=== PATIENT | female | born 1985 | race Caucasian/White ===

== ENCOUNTER 2019-12-26 19:30 | Emergency (ER) | payer OTHER ==
--- NOTE | 2019-12-26 20:03 | EDPHYS ---
Physician Documentation [facility] Name: Angella Pereira Age: 34 yrs Sex: Female : 1985 Arrival Date: 12/26/2019 Time: 19:34 Bed 23 Private MD: ED Physician Osmin Munguia HPI: 12/26 20:00 This 34 yrs old Female presents to ER via Ambulatory with complaints of Check pm1 tubing. 20:00 Patient presenting to the ER with complaints of broken tubing attachment to her pm1 drainage bulb. Onset: The symptoms/episode began/occurred today. Patient has plastic surgery in [place]. Had a tummy tuck with a drain. The plastic tubing that attaches to the drainage bulb broke and she would like a replacement. Patient without any other complaints. No fever or abdominal pain. 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 - Coronavirus screen:: The patient has NOT traveled to [place], [place], or [place] in the past 14 days. The patient has NOT had contact with known/suspected case of Coronavirus? Proceed with normal triage procedures. - Social history:: Smoking status: Patient reports the use of cigarette tobacco products, denies chronic smoking, but will smoke occasionally. - Ebola Screening: : Patient negative for fever greater than or equal to 101.5 degrees Fahrenheit, and additional compatible Ebola Virus Disease symptoms. ROS: 20:00 Constitutional: Negative for fever, chills, and weight loss, Abdomen/GI: Negative for pm1 abdominal pain, nausea, vomiting, diarrhea, and constipation. 20:00 All other systems are negative. Exam: 20:00 Constitutional: This is a well developed, well nourished patient who is awake, alert, pm1 and in no acute distress. Head/Face: Normocephalic, atraumatic. Chest/axilla: Normal chest wall appearance and motion. Nontender with no deformity. No lesions are appreciated. Cardiovascular: Regular rate and rhythm with a normal S1 and S2. No gallops, murmurs, or rubs. No pulse deficits. Respiratory: Lungs have equal breath sounds bilaterally, clear to auscultation and percussion. No rales, rhonchi or wheezes noted. No increased work of breathing, no retractions or nasal flaring. Abdomen/GI: Soft, non-tender, with normal bowel sounds. No distension or tympany. No guarding or rebound. No evidence of tenderness throughout. Skin: Warm, dry with normal turgor. Normal color with no rashes, no lesions, and no evidence of cellulitis. MS/ Extremity: Pulses equal, no cyanosis. Neurovascular intact. Full, normal range of motion. 20:00 Neuro: Orientation: is normal, Mentation: is normal, Gait: is steady, at a normal pace, without difficulty. Vital Signs: 19:48 BP 108 / 68; Pulse 78; Resp 16 S; Temp 98.9(TE); Pulse Ox 100% on R/A; Weight 77.11 kg jd3 (R); Height 5 ft. 6 in. (167.64 cm) (R); Pain 0/10; 19:48 Body Mass Index 27.44 (77.11 kg, 167.64 cm) jd3 MDM: 20:00 Patient medically screened. pm1 20:00 Data reviewed: vital signs. Data interpreted: Pulse oximetry: on room air is 100 %. pm1 Interpretation: normal. Counseling: I had a detailed discussion with the patient and/or guardian regarding: the historical points, exam findings, and any diagnostic results supporting the discharge/admit diagnosis, the need for outpatient follow up, a plastic surgeon, to return to the emergency department if symptoms worsen or persist or if there are any questions or concerns that arise at home. 12/26 20:14 Order name: Leg Bag; Complete Time: 20:14 mg2 Administered Medications: No medications were administered Disposition: 12/26/19 20:02 Discharged to Home. Impression: Encounter for attention to dressings, sutures and drains. - Condition is Stable. - Medication Reconciliation Form, Thank You Letter, Antibiotic Education, Prescription Opioid Use form. - Follow up: Emergency Department; When: As needed; Reason: Worsening of condition. Follow up: Private Physician; When: 2 - 3 days; Reason: Recheck today's complaints, Continuance of care, Re-evaluation by your physician. - Problem is new. - Symptoms have improved. Addendum: 12/28/2019 07:46 Co-signature as Attending Physician, Osmin Munguia MD I agree with the assessment and t w4 plan of care. Signatures: Emigdio Rooney, LANDEN WELDER EXPLOSION pm1 Rick Szymanski, RN RN jd3 Osmin Munguia MD MD tw4 Vladimir Fry, RN RN mg2 Corrections: (The following items were deleted from the chart) 12/26 20:15 20:02 12/26/2019 20:02 Discharged to Home. Impression: Encounter for attention to mg2 dressings, sutures and drains. Condition is Stable. Forms are Medication Reconciliation Form, Thank You Letter, Antibiotic Education, Prescription Opioid Use. Follow up: Emergency Department; When: As needed; Reason: Worsening of condition. Follow up: Private Physician; When: 2 - 3 days; Reason: Recheck today's complaints, Continuance of care, Re-evaluation by your physician. Problem is new. Symptoms have improved. pm1
--- NOTE | 2019-12-26 20:03 | ER ---
Nurse's Notes [facility] Name: Angella Pereira Age: 34 yrs Sex: Female : 1985 Arrival Date: 12/26/2019 Time: 19:34 Bed 23 Private MD: Diagnosis: Encounter for attention to dressings, sutures and drains Presentation: 12/26 19:46 Presenting complaint: Patient states: "I had plastic surgery and I had the drain jd3 brake.". Transition of care: patient was not received from another setting of care. Onset of symptoms was December 26, 2019. Risk Assessment: Do you want to hurt yourself or someone else? Patient reports no desire to harm self or others. Initial Sepsis Screen: Does the patient meet any 2 criteria? No. Patient's initial sepsis screen is negative. Does the patient have a suspected source of infection? No. Patient's initial sepsis screen is negative. Care prior to arrival: None. 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 - Coronavirus screen:: The patient has NOT traveled to [place], [place], or [place] in the past 14 days. The patient has NOT had contact with known/suspected case of Coronavirus? Proceed with normal triage procedures. - Social history:: Smoking status: Patient reports the use of cigarette tobacco products, denies chronic smoking, but will smoke occasionally. - Ebola Screening: : Patient negative for fever greater than or equal to 101.5 degrees Fahrenheit, and additional compatible Ebola Virus Disease symptoms. Screenin:11 Abuse screen: Denies threats or abuse. Denies injuries from another. Nutritional mg2 screening: No deficits noted. Tuberculosis screening: No symptoms or risk factors identified. Fall Risk None identified. Assessment: 20:11 General: Appears in no apparent distress. comfortable, Behavior is calm, cooperative. mg2 Pain: Denies pain. Neuro: Level of Consciousness is awake, alert, obeys commands, Oriented to person, place, time, situation. Cardiovascular: Capillary refill < 3 seconds Patient's skin is warm and dry. Vital Signs: 19:48 BP 108 / 68; Pulse 78; Resp 16 S; Temp 98.9(TE); Pulse Ox 100% on R/A; Weight 77.11 kg jd3 (R); Height 5 ft. 6 in. (167.64 cm) (R); Pain 0/10; 19:48 Body Mass Index 27.44 (77.11 kg, 167.64 cm) jd3 ED Course: 19:34 Patient arrived in ED. es 19:47 Triage completed. jd3 19:50 Arm band placed on. jd3 19:52 Vladimir Fry, LEOPOLDO is Primary Nurse. mg2 19:53 Emigdio Rooney NP is PHCP. pm1 19:53 Osmin Munguia MD is Attending Physician. pm1 20:12 Patient has correct armband on for positive identification. Door closed. mg2 20:12 No provider procedures requiring assistance completed. Patient did not have IV access mg2 during this emergency room visit. 20:12 leg bag/drain attached to the post-surgical tubing/ tummy tuck. mg2 Administered Medications: No medications were administered Outcome: 20:02 Discharge ordered by . pm1 20:13 Discharged to home ambulatory, with family. mg2 20:13 Condition: stable 20:13 Discharge instructions given to patient, Instructed on discharge instructions, follow up and referral plans. Demonstrated understanding of instructions, follow-up care. 20:15 Patient left the ED. mg2 Signatures: Katelyn So Emigdio Rooney NP MAP MOUNTER pm1 Rick Szymanski RN RN jd3 Vladimir Fry RN RN mg2
[2019-12-26 20:22] VITALS: BP 108/68; TEMP 98.9; O2SAT 100
== END 2019-12-26 20:15 | disposition home or self-care (01) ==
LOC: ER 19:30
DX: Z48.03 Encounter for change or removal of drains (principal)
CPT/HCPCS: 99281

== ENCOUNTER 2020-02-28 16:10 | Emergency (ER) | payer OTHER ==
[2020-02-28] MEDS ORDERED: NA CHLORIDE 0.9% 1,000 ML ONE (16:33)
[2020-02-28 17:04] LABS: Absolute Lymphocytes (CBC) 1.5 K/uL (0.7-4.9); Basophils % 0.3 % (0-1.3); Hematocrit 42.4 % (36.0-45.0); Lymphocytes % 12.1 % (15.3-44.8); MPV 8.6 fL (7.6-11.3); RBC Red Blood Cell Count 4.73 M/uL (3.86-4.86)
[2020-02-28 17:13] LABS: Barbiturates NEGATIVE (NEGATIVE); Benzodiazepines POSITIVE (NEGATIVE); Cocaine POSITIVE (NEGATIVE); METHAMPHETAM POSITIVE (NEGATIVE); Methadone NEGATIVE (NEGATIVE); Opiates NEGATIVE (NEGATIVE); Phencyclidine NEGATIVE (NEGATIVE); THC Cannibis NEGATIVE (NEGATIVE)
[2020-02-28 17:14] LABS: Protime INR 1.05
--- NOTE | 2020-02-28 17:15 | RAD REPORT ---
EXAM DESCRIPTION: CT - Head Brain Wo Cont - 02/28/2020 4:58 pm CLINICAL HISTORY: SEIZURE Headache, drowsiness, seizure COMPARISON: No comparisons TECHNIQUE: All CT scans are performed using dose optimization technique as appropriate and may inclu de automated exposure control or mA/KV adjustment according to patient size. FINDINGS: No intracranial hemorrhage, hydrocephalus or extra-axial fluid collection.No areas of brai n edema or evidence of midline shift. The paranasal sinuses and mastoids are clear. The calvarium is intact. IMPRESSION: No acute intracranial abnormality.
[2020-02-28 17:23] LABS: ALT/SGPT 17 U/L (12-78); AST/SGOT 12 U/L (15-37); Albumin 3.8 g/dL (3.4-5.0); Alkaline Phosphatase 89 U/L (45-117); BUN Blood Urea Nitrogen 11 mg/dL (7-18); Bicarbonate 24 mmol/L (21-32); Bilirubin Direct 0.2 mg/dL (0-0.2); Bilirubin Total 0.7 mg/dL (0.2-1.0); Glucose Level 114 mg/dL (74-106); Potassium 3.6 mmol/L (3.5-5.1); Protein, Total 7.9 g/dL (6.4-8.2); Sodium Level 138 mmol/L (136-145)
--- NOTE | 2020-02-28 17:30 | EDPHYS ---
Physician Documentation [facility] Name: Angella Pereira Age: 34 yrs Sex: Female : 1985 Arrival Date: 02/28/2020 Time: 16:12 Bed 6 Private MD: ED Physician Senthil Leyva HPI: 02/27 16:58 This 34 yrs old Female presents to ER via EMS with complaints of seizure. rn 16:58 The patient presents after having a single isolated seizure. Seizure onset: the onset rn is not known. Associated injury: The patient did not suffer any apparent associated injury. Current symptoms: confusion. The patient has experienced similar episodes in the past. Patient reports woke up on floor in apartment, does not recall how she got there or what she was doing, tastes ETOH in her mouth. Reports has seizures, takes lamictal, and reports compliance. Reports tummy tuck in [place] a couple of weeks ago and doing well. Here from out of state, staying with sister. Reports used to shoot heroin and cocaine. But denies recent drug use. . 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 - Social history:: Smoking status: Patient reports the use of cigarette tobacco products, smokes one pack cigarettes per day. previous IV drug user. - Family history:: not pertinent. - Hospitalizations: : No recent hospitalization is reported. ROS: 16:58 Constitutional: Negative for fever, chills, and weight loss, Eyes: Negative for injury, rn pain, redness, and discharge, Neck: Negative for injury, pain, and swelling, Cardiovascular: Negative for chest pain, palpitations, and edema, Respiratory: Negative for shortness of breath, cough, wheezing, and pleuritic chest pain, Abdomen/GI: Negative for abdominal pain, nausea, vomiting, diarrhea, and constipation, Back: Negative for injury and pain, MS/Extremity: Negative for injury and deformity, Skin: Negative for injury, rash, and discoloration, Neuro: Negative for weakness, numbness, tingling Exam: 16:58 Constitutional: This is a well developed, well nourished patient who is awake, alert, rn and in no acute distress. Head/Face: Normocephalic, atraumatic. Eyes: Pupils equal round and reactive to light ENT: No oral trauma, dry MM Neck: Trachea midline, no thyromegaly or masses palpated, and no cervical lymphadenopathy. Supple, full range of motion without nuchal rigidity, or vertebral point tenderness. No Meningismus. Cardiovascular: Tachycardic, regular, intact distal pulses Respiratory: Mild tachypnea, clear bilateral breath sounds. Abdomen/GI: soft, non-tender Skin: Warm, dry, + old scars bilateral arms from drug injections. MS/ Extremity: Pulses equal, no cyanosis. Neurovascular intact. Full, normal range of motion. Equal circumference. Neuro: Awake and alert, GCS 15, oriented to person, place, time, and situation. Cranial nerves II-XII grossly intact. Motor strength 5/5 in all extremities. Sensory grossly intact. Cerebellar exam normal. Vital Signs: 16:12 BP 121 / 89; Pulse 116; Resp 22 S; Temp 98.8(O); Pulse Ox 98% on R/A; Pain 0/10; jl7 17:00 BP 120 / 87; Pulse 104; Resp 16 S; Pulse Ox 100% on R/A; jl7 MDM: 16:17 Patient medically screened. rn 17:26 Differential diagnosis: drug overdose, cardiac arrhythmia, seizure. Data reviewed: rn vital signs, nurses notes, lab test result(s), EKG, radiologic studies, CT scan, and as a result, I will discharge patient. Counseling: I had a detailed discussion with the patient and/or guardian regarding: the historical points, exam findings, and any diagnostic results supporting the discharge/admit diagnosis, lab results, radiology results, the need for outpatient follow up, to return to the emergency department if symptoms worsen or persist or if there are any questions or concerns that arise at home. Response to treatment: the patient's symptoms have markedly improved after treatment, and as a result, I will discharge patient. Special discussion: I discussed with the patient/guardian in detail that at this point there is no indication for admission to the hospital. It is understood, however, that if the symptoms persist or worsen the patient needs to return immediately for re-evaluation. Based on the history and exam findings, there is no indication for further emergent testing or inpatient evaluation. I discussed with the patient/guardian the need to see the neurologist for further evaluation of the symptoms. I discussed with the patient/guardian the need to see the primary care provider for further evaluation of the symptoms. ED course: Pt back to baseline, normal CT head/cspine, + drugs in urine, + hx of seizures, will dc home with continuation of seizure medication and drug cessation.. 02/27 16:25 Order name: Acetaminophen rn 02/27 16:25 Order name: Basic Metabolic Panel; Complete Time: 17:25 rn 02/27 16:25 Order name: CBC with Diff; Complete Time: 17: rn 02/27 16:25 Order name: ETOH Level; Complete Time: 17: rn 02/27 16:25 Order name: Hepatic Function; Complete Time: 17: rn 02/27 16:25 Order name: PT-INR; Complete Time: 17: rn 02/27 16:25 Order name: Ptt, Activated; Complete Time: 17: rn 02/27 16:25 Order name: Salicylate; Complete Time: 17: rn 02/27 16:25 Order name: Urine Drug Screen; Complete Time: 17: rn 02/27 16:25 Order name: EKG; Complete Time: 16:25 rn 02/27 16:25 Order name: CT Head Brain wo Cont; Complete Time: 17: rn 02/27 16:25 Order name: Acetaminophen Level; Complete Time: 17:25 EDMI 02/27 17:18 Order name: Urine Dipstick--Ancillary (enter results) eb 02/27 16:25 Order name: Urine Test (obtain specimen); Complete Time: 17: rn 02/27 16:25 Order name: EKG - Nurse/Tech; Complete Time: 17: rn 02/27 16:25 Order name: IV Saline Lock; Complete Time: 17: rn 02/27 16:25 Order name: Labs collected and sent; Complete Time: 17: rn 02/27 16:25 Order name: Urine Dipstick-Ancillary (obtain specimen); Complete Time: 17:06 rn Administered Medications: 17:21 Drug: NS 0.9% 1000 ml Route: IV; Rate: 1000 ml; Site: right forearm; jl7 17:44 Follow up: Response: No adverse reaction; IV Status: Completed infusion; IV Intake: jl7 1000ml Disposition: 02/28/20 17:29 Discharged to Home. Impression: Epilepsy and recurrent seizures, Drug overdose/abuse. - Condition is Stable. - Discharge Instructions: Seizure, Adult, Drug Overdose. - Medication Reconciliation Form, Thank You Letter, Antibiotic Education, Prescription Opioid Use, Work release form form. - Follow up: Private Physician; When: As needed; Reason: Recheck today's complaints, Re-evaluation by your physician. - Problem is new. - Symptoms have improved. Signatures: Dispatcher [employer] EDMS Senthil Leyva MD MD rn Leal, Jahala, RN RN jl7 Corrections: (The following items were deleted from the chart) 17:45 17:29 02/28/2020 17:29 Discharged to Home. Impression: Epilepsy and recurrent seizures; jl7 Drug overdose/abuse. Condition is Stable. Forms are Medication Reconciliation Form, Thank You Letter, Antibiotic Education, Prescription Opioid Use. Follow up: Private Physician; When: As needed; Reason: Recheck today's complaints, Re-evaluation by your physician. Problem is new. Symptoms have improved. rn
--- NOTE | 2020-02-28 17:30 | ER ---
Nurse's Notes [facility] Name: Angella Pereira Age: 34 yrs Sex: Female : 1985 Arrival Date: 02/28/2020 Time: 16:12 Bed 6 Private MD: Diagnosis: Epilepsy and recurrent seizures;Drug overdose/abuse Presentation: 02/27 16:12 Chief complaint: EMS states: Toned out for seizure and reported the pt trashed the [facility] apartment, there was glass all over the ground, cocaine was noted on the floor, pt was ambulatory. Pt's eyes are wide, flat affect noted, reports she doesn't remember the person she was with. [facility] is visiting from [place], [facility] [place] in January. Coronavirus screen: Proceed with normal triage. Ebola Screen: No symptoms or risks identified at this time. Initial Sepsis Screen: Does the patient meet any 2 criteria? No. Patient's initial sepsis screen is negative. Does the patient have a suspected source of infection? No. Patient's initial sepsis screen is negative. Risk Assessment: Do you want to hurt yourself or someone else? Patient reports no desire to harm self or others. Onset of symptoms was February 28, 2020. 16:12 Method Of Arrival: EMS: [facility] 16:12 Acuity: LÓPEZ 3 jl7 Triage Assessment: 16:21 General: Appears in no apparent distress. uncomfortable, Behavior is cooperative, flat. jl7 Pain: Denies pain. Neuro: Level of Consciousness is awake, alert, obeys commands, Oriented to person, place, time. Cardiovascular: Patient's skin is warm and dry. Respiratory: Airway is patent Respiratory effort is even, unlabored, Respiratory pattern is symmetrical, tachypnea. Derm: Skin is pink, warm \T\ dry. 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 - Social history:: Smoking status: Patient reports the use of cigarette tobacco products, smokes one pack cigarettes per day. previous IV drug user. - Family history:: not pertinent. - Hospitalizations: : No recent hospitalization is reported. Screenin:30 Abuse screen: Denies threats or abuse. Denies injuries from another. Nutritional jl7 screening: On no prescribed diet Difficulty chewing/swallowing? No. Tuberculosis screening: No symptoms or risk factors identified. 17:12 Fall Risk IV access (20 points). Total Solano Fall Scale indicates No Risk (0-24 pts). jl7 Assessment: 16:30 General: see triage assessment. jl7 17:30 Reassessment: Patient appears in no apparent distress at this time. Patient and/or jl7 family updated on plan of care and expected duration. Pain level reassessed. Patient is alert, oriented x 3, equal unlabored respirations, skin warm/dry/pink. Patient denies pain at this time. Vital Signs: 16:12 BP 121 / 89; Pulse 116; Resp 22 S; Temp 98.8(O); Pulse Ox 98% on R/A; Pain 0/10; jl7 17:00 BP 120 / 87; Pulse 104; Resp 16 S; Pulse Ox 100% on R/A; jl7 ED Course: 16:12 Patient arrived in ED. jl7 16:17 Senthil Leyva MD is Attending Physician. rn 16:17 Triage completed. jl7 16:21 Arm band placed on right wrist. jl7 16:21 Patient has correct armband on for positive identification. Placed in gown. Bed in low jl7 position. Call light in reach. Side rails up X2. Seizure precautions initiated. desk monitor on. Pulse ox on. NIBP on. Warm blanket given. 16:25 Rosanne Mallory, LEOPOLDO is Primary Nurse. jl7 16:45 Missed attempt(s): 22 gauge in left antecubital area. Bleeding controlled, band aid jl7 applied, catheter tip intact. 16:55 Missed attempt(s): 22 gauge in right antecubital area. Bleeding controlled, band aid jl7 applied, catheter tip intact. 16:58 CT completed. Patient moved back from CT. mw3 16:59 CT Head Brain wo Cont In Process Unspecified. EDMS 17:00 Initial lab(s) drawn, by me, sent to lab. Urine collected: clean catch specimen, clear, jl7 EKG done, by ED staff, reviewed by Senthil Leyva MD. Inserted saline lock: 22 gauge in right forearm, using aseptic technique. Blood collected. 17:45 No provider procedures requiring assistance completed. IV discontinued, intact, jl7 bleeding controlled, No redness/swelling at site. Pressure dressing applied. Administered Medications: 17:21 Drug: NS 0.9% 1000 ml Route: IV; Rate: 1000 ml; Site: right forearm; jl7 17:44 Follow up: Response: No adverse reaction; IV Status: Completed infusion; IV Intake: jl7 1000ml Intake: 17:44 IV: 1000ml; Total: 1000ml. jl7 Outcome: 17:29 Discharge ordered by . rn 17:45 Discharged to home ambulatory, with family. jl7 17:45 Condition: stable 17:45 Discharge instructions given to patient, Instructed on discharge instructions, follow up and referral plans. Demonstrated understanding of instructions, follow-up care. 17:45 Patient left the ED. jl7 Signatures: Dispatcher [employer] EDMS Senthil Leyva MD MD rn Leal, Jahala, RN RN jl7 Rita Urban mw3
[2020-02-28 17:49] LABS: Urine Blood NEGATIVE (NEG); Urine Glucose NEGATIVE (NEG); Urine Protein TRACE (NEG); Urine pH 5.5 (5.0-7.0)
[2020-02-28 18:00] VITALS: TEMP 98.8
[2020-02-28 18:01] VITALS: BP 120/87; O2SAT 100
--- NOTE | 2020-02-29 16:50 | EKG ---
Test Date: 2020-02-28 Test Time: 16:38:41 Contract Attorney: ROHINI MEASUREMENT RESULTS: Intervals: Rate: 113 SC: 138 QRSD: 74 QT: 334 QTc: 458 [place]: P: 75 SC: 138 QRS: 79 T: 70 INTERPRETIVE STATEMENTS: Sinus tachycardia Otherwise normal ECG Compared to ECG 08/05/2011 05:18:44 No significant changes Electronically Signed On 02-29-20 16:47:39 CDT by Chris Navarro
--- NOTE | 2020-02-29 16:50 | EKG ---
Test Date: 2020-02-28 Test Time: 16:38:13 Doctor Of Optometry: ROHINI MEASUREMENT RESULTS: Intervals: Rate: 111 RI: 140 QRSD: 78 QT: 338 QTc: 459 [place]: P: 74 RI: 140 QRS: 79 T: 72 INTERPRETIVE STATEMENTS: Sinus tachycardia Otherwise normal ECG Compared to ECG 08/05/2011 05:18:44 No significant changes Electronically Signed On 02-29-20 16:47:40 CDT by Chris Navarro
== END 2020-02-28 17:45 | disposition home or self-care (01) ==
LOC: ER 16:10
DX: G40.802 Other epilepsy, not intractable, without status epilepticus (principal); T50.901A Poisoning by unspecified drugs, medicaments and biological substances, accidental (unintentional), initial encounter; F32.9 Major depressive disorder, single episode, unspecified; F17.210 Nicotine dependence, cigarettes, uncomplicated
CPT/HCPCS: 93005 ×2; 85025; 80048; 36415; 80320; 80329 ×2; 85610; 80076; 80307 ×8; 85730; 81003; 70450; 99285; J7030